=== PATIENT | male | born 1980 | race African-American/Black ===

== ENCOUNTER 2018-06-23 04:05 | Emergency (ER) | payer MEDICAID ==
[~2018-06-23] VITALS: Ht 190.5 cm; Wt 127.0 kg
--- NOTE | 2018-06-23 04:05 | NUR ---
TO ED 04 VIA [facility]
[2018-06-23 04:15] VITALS: BP 136/86
[2018-06-23 04:17] VITALS: BP 136/86
--- NOTE | 2018-06-23 04:20 | NUR ---
PT TO ED WITH C/O ALOC. PER MEDIC REPORT "PT FOUND SLEEPING NEAR BANK WITH NO PANTS ON." PT IS ALERT TO NAME AND BIRTHDAY. PT DENIES ALCOHOL AND DRUG USE. PT DENIES ANY PAIN AT THIS TIME. PT PLACED INTO BED, PENDING MD GAYTAN.
[2018-06-23 04:43] LABS: BASOPHILS % (AUTO) 0.5 % (0.0-2.0); EOSINOPHILS # (AUTO) 0.1 K/uL (0-0.4); EOSINOPHILS % (AUTO) 0.6 % (0.0-4.0); HEMATOCRIT 37.6 % (36-52); HEMOGLOBIN 12.7 g/dL (12.0-18.0); LYMPHOCYTES # (AUTO) 1.3 K/uL (2.0-11.5); LYMPHOCYTES % (AUTO) 12.2 % (20.5-51.1); MEAN CORPUSCULAR HEMOGLOBIN 32 pg (27-31); MEAN CORPUSCULAR HGB CONC 34 g/dL (33-37); MONOCYTES % (AUTO) 9.6 % (1.7-9.3); NEUTROPHILS % (AUTO) 77.1 % (42.2-75.2); PLATELET COUNT (AUTO) 316 K/uL (140-450); RED CELL DISTRIBUTION WIDTH 13.4 % (11.6-13.7); WHITE BLOOD COUNT (AUTO) 10.4 K/uL (4.8-10.8)
[2018-06-23 04:50] LABS: APPEARANCE,URINE CLEAR (CLEAR); BILIRUBIN,URINE NEGATIVE (NEGATIVE); BLOOD, URINE NEGATIVE (NEGATIVE); COLOR,URINE YELLOW (YELLOW); LEUKOCYTE ESTERASE ,URINE NEGATIVE (NEGATIVE); NITRITE, URINE NEGATIVE (NEGATIVE); UGLUCOSE NEGATIVE (NEGATIVE)
[2018-06-23 04:54] LABS: ANION GAP 11.9 (8-16); CARBON DIOXIDE 26.9 mmol/L (21-32); CHLORIDE 102 mmol/L (98-107); CREATININE 0.9 mg/dL (0.7-1.3); GFR ARICAN-AMERICAN 122 mL/min (>90); GLUCOSE 97 mg/dL (74-106); POTASSIUM 3.8 mmol/L (3.5-5.1); SODIUM SERUM 137 mmol/L (136-145); UREA NITROGEN, BLOOD 11 mg/dL (7-18)
[2018-06-23 04:58] LABS: BARBITURATE, URINE NEG. ng/ml (NEG <=200); BENZODIAZEPINE, URINE NEG. ng/mL (NEG <=200); CANNABINOID, URINE POS. ng/mL (NEG <=50); COCAINE, URINE NEG. ng/mL (NEG <=300); OPIATE, URINE NEG. ng/mL (NEG <=2000); PHENCYCLIDINE SCREEN,URINE NEG. ng/mL (NEG <=25)
[2018-06-23 04:59] LABS: ALBUMIN 2.9 g/dL (3.4-5.0); ASPARTATE AMINOTRANSFERASE 55 U/L (15-37); TOTAL BILIRUBIN 0.2 mg/dL (0.0-1.0)
[2018-06-23] MEDS ORDERED: NACL 0.9% 2,000 ML IV ONE (06:05)
[2018-06-23] MEDS ORDERED: PIPERACILLIN/TAZOBACTAM 3.375 GM in DEXTROSE 5% 50 ML IV ONE (06:05)
--- NOTE | 2018-06-23 06:05 | NUR ---
PT RETURN FROM CT
[2018-06-23] MEDS ORDERED: PIPERACILLIN/TAZOBACTAM 3.375 GM VIAL IV ONE (06:19)
--- NOTE | 2018-06-23 06:25 | NUR ---
PT TRYING TO GET OUT OF BED. PT REMOVED GOWN, PT STANDING IN HALLWAY NAKED. PT INSTRUCTED TO RETURN INTO ROOM. PATIENT TUGGING AT IV, STATES HE WANTS TO "BOUNCE." SECURITY CALLED TO BEDSIDE.
[2018-06-23] MEDS ORDERED: ACETAMINOPHEN 325 MG TAB PO PRN (06:30)
[2018-06-23] MEDS ORDERED: ONDANSETRON 4 MG/2 ML VIAL IVP PRN (06:30)
--- NOTE | 2018-06-23 06:35 | NUR ---
PT DRESSED HIMSELF IN PERSONAL CLOTHING. PT DOES NOT WANT TO STAY IN HOSPITAL. PT WAKLED OUT OF EMERGENCY ROOM, ELOPED FROM FACILITY. DR. HAZEL AWARE. SECURITY ESCORTED PT OUT.
--- NOTE | 2018-06-23 06:45 | NUR ---
PATIENT ELOPED FROM FACILITY. DISCHARGE INSTRUCTIONS NOT GIVEN TO PATIENT. DR. HAZEL NOTIFIED.
[2018-06-23] MEDS ORDERED: DOCUSATE SODIUM 100 MG GELCAP PO SCH (09:00)
[2018-06-24] MEDS ORDERED: RIS1 PO (20:27)
[2018-06-24] MEDS ORDERED: AZIT250T11 PO (20:27)
== END 2018-06-23 06:35 | disposition left against medical advice (07) ==
LOC: MED 04:05
DX: R41.82 Altered mental status, unspecified (principal); J18.9 Pneumonia, unspecified organism
CPT/HCPCS: 36415; 70450; 71045; 80053; 80305; 81003; 85025; 93005; 99284; G0482; J2543; J7030; Q0092

== ENCOUNTER 2018-06-23 09:54 | Inpatient (IN) | payer MEDICAID ==
[~2018-06-23] VITALS: Ht 188 cm; Wt 127.0 kg
--- NOTE | 2018-06-23 09:55 | NUR ---
PATIENT BIB EMS TO BED 9 AT THIS TIME.
[2018-06-23 09:59] VITALS: BP 130/79
[2018-06-23] MEDS ORDERED: NACL 0.9% 1,000 ML IV ONE (10:14)
--- NOTE | 2018-06-23 10:15 | NUR ---
PT TRIAGED AT BEDSIDE. SECURITY NOTIFIED THAT PT IS BACK. SECURITY AT BEDSIDE.
[2018-06-23] MEDS ORDERED: NACL 0.9% 2,000 ML IV SCH (10:16)
[2018-06-23] MEDS ORDERED: PIPERACILLIN/TAZOBACTAM 3.375 GM in DEXT 5% MINI-BAG PLUS 50 ML IV ONE (10:20)
--- NOTE | 2018-06-23 10:26 | NUR ---
PT REFUSED EKG AT THIS TIME, WILL ATTEMPT LATER. MD AND RN NOTIFIED
--- NOTE | 2018-06-23 10:26 | NUR ---
ABG CANCELLED PER DR HAZEL PT COMBATIVE
--- NOTE | 2018-06-23 10:33 | NUR ---
LAB AT BEDSIDE TO DRAW BLOOD
[2018-06-23] MEDS ORDERED: HYDROcodone/APAP 7.5/325 MG 1 TAB PO PRN (10:35)
[2018-06-23] MEDS ORDERED: ONDANSETRON 4 MG/2 ML VIAL IVP PRN (10:35)
[2018-06-23] MEDS ORDERED: ACETAMINOPHEN 325 MG TAB PO PRN (10:35)
[2018-06-23 10:44] LABS: BASOPHILS % (AUTO) 0.5 % (0.0-2.0); EOSINOPHILS # (AUTO) 0.1 K/uL (0-0.4); EOSINOPHILS % (AUTO) 0.8 % (0.0-4.0); HEMATOCRIT 38.1 % (36-52); HEMOGLOBIN 12.7 g/dL (12.0-18.0); LYMPHOCYTES # (AUTO) 1.3 K/uL (2.0-11.5); LYMPHOCYTES % (AUTO) 13.8 % (20.5-51.1); MEAN CORPUSCULAR HEMOGLOBIN 32 pg (27-31); MEAN CORPUSCULAR HGB CONC 33 g/dL (33-37); MEAN CORPUSCULAR VOLUME 94.3 fL (80-94); MONOCYTES # (AUTO) 0.9 K/uL (0.8-1.0); MONOCYTES % (AUTO) 9.5 % (1.7-9.3); NEUTROPHILS # (AUTO) 7.1 K/uL (1.8-7.7); NEUTROPHILS % (AUTO) 75.4 % (42.2-75.2); PLATELET COUNT (AUTO) 334 K/uL (140-450); RED BLOOD CELL COUNT(AUTO) 4.04 MIL/uL (4.20-6.10); RED CELL DISTRIBUTION WIDTH 13.5 % (11.6-13.7); WHITE BLOOD COUNT (AUTO) 9.4 K/uL (4.8-10.8)
--- NOTE | 2018-06-23 10:46 | NUR ---
PCXR AT BEDSIDE. SECURITY REMAINS AT BEDSIDE.
[2018-06-23 10:51] LABS: CARBON DIOXIDE 29.6 mmol/L (21-32); CREATININE 0.8 mg/dL (0.7-1.3); POTASSIUM 3.6 mmol/L (3.5-5.1); PROTHROMBIN TIME 9.3 secs (10.8-13.4)
[2018-06-23 10:57] LABS: ALBUMIN 2.9 g/dL (3.4-5.0); TOTAL BILIRUBIN 0.3 mg/dL (0.0-1.0)
[2018-06-23 10:58] LABS: ACETONE, SERUM NEGATIVE (NEGATIVE)
[2018-06-23 11:05] LABS: MAGNESIUM 2.1 mg/dL (1.8-2.4); URIC ACID 3.6 mg/dL (2.6-7.2)
--- NOTE | 2018-06-23 11:06 | NUR ---
PT AMBULATED TO RESTROOM AND BACK TO [facility] WITH STEADY GAIT. LOAN APPROVER ATTEMPTING TO COMPLETE EKG. SECURITY AT BEDSIDE.
[2018-06-23 11:08] LABS: CHOL/HDL RATIO 2.4 (1-4.5); FREE T4 (FREE THYROXINE) 1.23 ng/dL (0.76-1.46); PHOSPHORUS 3.3 mg/dL (2.5-4.9); THYROID STIMULATING HORMONE 1.09 uIU/mL (0.34-3.74)
--- NOTE | 2018-06-23 11:19 | NUR ---
DR. SIERRA AT BEDSIDE TO EVALUATE PT. EKG COMPLETED.
[2018-06-23 11:29] LABS: APPEARANCE,URINE SL CLOUDY (CLEAR); BILIRUBIN,URINE NEGATIVE (NEGATIVE); BLOOD, URINE 1+ (NEGATIVE); COLOR,URINE YELLOW (YELLOW); LEUKOCYTE ESTERASE ,URINE 1+ (NEGATIVE); NITRITE, URINE NEGATIVE (NEGATIVE); PH,URINE 6.5 (5.0-9.0); UGLUCOSE NEGATIVE (NEGATIVE)
[2018-06-23] MEDS: NACL 0.9% 1,000 ML IV SCH ×2 (11:32→20:34)
[2018-06-23] MEDS ORDERED: PIPERACILLIN/TAZOBACTAM 3.375 GM VIAL IV ONE (11:34)
--- NOTE | 2018-06-23 11:38 | NUR ---
SECURITY LEFT PT'S BEDSIDE. PT SLEEPING SOUNDLY, EQUAL CHEST RISE AND FALL.
[2018-06-23 11:49] LABS: WBC,URINE 0-5 /HPF (0-5)
[2018-06-23 11:50] LABS: URINE AMORPHOUS URATE 1+ /HPF (None Seen)
[2018-06-23 11:55] LABS: BARBITURATE, URINE NEG. ng/ml (NEG <=200); BENZODIAZEPINE, URINE NEG. ng/mL (NEG <=200); CANNABINOID, URINE POS. ng/mL (NEG <=50); COCAINE, URINE NEG. ng/mL (NEG <=300); OPIATE, URINE NEG. ng/mL (NEG <=2000); PHENCYCLIDINE SCREEN,URINE NEG. ng/mL (NEG <=25)
[2018-06-23 12:15] VITALS: BP 142/93
--- NOTE | 2018-06-23 12:15 | NUR ---
Pt admitted to room 110A from ER via rericson. Pt transferred from gurney to bed with 4-person total assist. Pt drowsy, non-verbal, able to follow one-step commands. Fall precautions initiated, call light within reach, bed alarm on. Left AC IV intact with ongoing NS @ 100ml/hr with Zosyn IVPB @ 100ml/hr. Will continue to monitor. Addendum: 06/23/18 at 1549 by Nika Lopez RN Addendum: Report received from ER nurse Kamille.
--- NOTE | 2018-06-23 12:19 | NUR ---
Patient will be admitted to care of DR. HOPPER. Admited to TELE. Will go to room 110A. Belongings list completed. Report to KORINA CARPENTER.
[2018-06-23] MEDS ORDERED: cefTRIAXone 2,000 MG in DEXTROSE 5% 100 ML IV SCH (13:00)
[2018-06-23] MEDS ORDERED: AZITHROMYCIN 500 MG in DEXTROSE 5% 250 ML IV SCH (13:00)
--- NOTE | 2018-06-23 14:00 | NUR ---
Pt awake, verbally responsive, states he is homeless with no other medical hx, no meds. Pt also states he donated his intestines to his cousin. Pt noted to be pulling on IV lines. Explained safety & indications for IV meds & hydration. Pt redirected but states he wants to go out to smoke. Explained non-smoking policy. Pt frequently getting up & stating he will walk out with his IVs. Security at bedside monitoring pt.
--- NOTE | 2018-06-23 14:30 | NUR ---
Pt taking out home health outreach coordinator. Explained benefits of continuous cardiac monitoring, pt cont to refuse. Dr. Ramesh notified.
[2018-06-23] MEDS: LORazepam 2 MG/ML VIAL IM/IVP PRN (14:36)
[2018-06-23] MEDS ORDERED: HALOPERIDOL IM 5 MG/ML VIAL IM SCH (14:58)
[2018-06-23] MEDS ORDERED: diphenhydrAMINE 50 MG/ML VIAL IVP SCH (14:58)
--- NOTE | 2018-06-23 15:10 | NUR ---
Haldol & Benadryl administered per physician order d/t pt being aggressive & uncooperative. Security personnel at bedside for monitoring. Cont fall precautions. Constant visual checks done to ensure safety. Bed alarm on.
--- NOTE | 2018-06-23 15:40 | NUR ---
Dr Oh came in to see pt. Pt sitting on bed, drowsy & stumbling forward. Pt assisted to bed, bed alarm on, frequent checks done. Left AC IV intact with ongoing Zithromax infusion.
[2018-06-23 16:00] VITALS: BP 142/70
--- NOTE | 2018-06-23 16:30 | NUR ---
Pt getting up wanting to go out to smoke. Explained non-smoking policy. Pt assisted back to bed. Pt states he wants to shower. IVF held. IV site wrapped with clear dressing. Pt drowsy. Instructed pt to lie back in bed & will have shower when more awake. Pt laid down in bed & went to sleep. Respirations even & nonlabored. Bed alarm on. Will cont to monitor.
--- NOTE | 2018-06-23 19:14 | NUR ---
Bedside report given to pm nurse Noe. Pt asleep in bed, cont to hold IVF d/t pt poor safe maneuvering of IV pole. Bed alarm on. Call light within reach.
--- NOTE | 2018-06-23 19:15 | NUR ---
REPORT RECEIVED FROM AM NURSE AT BEDSIDE. PT IN STABLE CONDITION. AAOX3. INTRODUCED SELF TO PT. BOARD UPDATED. NO COMPLAINTS OF PAIN. NO SOB. AFEBRILE. IV SITE L UA 20G RUNNING NS@100ML/HR PATENT AND INTACT. SKIN WARM, DRY, AND INTACT WITH SCABS TO THE RIGHT UPPER THIGH. PT IS HOMELESS. BED LOCKED IN LOW POSITION. CALL RUBIO WITHIN REACH. SAFETY PRECAUTIONS IN PLACE. ALL NEEDS MET AT THIS TIME.
[2018-06-23] MEDS ORDERED: NICOTINE TRANSD SYS 21 MG/24 HR PATCH TD SCH (20:00)
[2018-06-23] MEDS: DOCUSATE SODIUM 100 MG GELCAP PO SCH (20:09)
[2018-06-23] MEDS: risperiDONE 1 MG TAB PO SCH (20:09)
--- NOTE | 2018-06-23 20:09 | NUR ---
RISPERDAL GIVEN PO. HABITROL APPLIED TO LEFT UPPER ARM. PT TOLERATED WELL. PT REFUSED DOCUSATE.
[2018-06-23] MEDS ORDERED: QUEtiapine FUMARATE 25 MG TAB PO SCH (21:00)
--- NOTE | 2018-06-23 22:45 | NUR ---
PT UP AND AWAKE SAYING THAT HE WANTS THE IV OUT AND ATTEMPTS TO PULL IV OUT. MD NOTIFIED. AWAITING NEW ORDERS.
[2018-06-24] VITALS: BP 128/88
--- NOTE | 2018-06-24 | NUR ---
IV REMOVED. CANNULA INTACT.
--- NOTE | 2018-06-24 00:15 | NUR ---
PT SLEEPING IN THE BED. NO S/S OF SOB OR ANY DISTRESS NOTED. BREATHING EVENLY AND UNLABORED. SKIN WARM AND DRY TO TOUCH. CALL LIGHT WITHIN REACH. WILL CONTINUE TO MONITOR Addendum: 06/25/18 at 0620 by Dg Simmons RN WRONG TIME
[2018-06-24] MEDS: LORazepam 2 MG/ML VIAL IM/IVP PRN ×2 (01:43→06:16)
--- NOTE | 2018-06-24 01:43 | NUR ---
ATIVAN GIVEN IM. PT TOLERATED WELL.
--- NOTE | 2018-06-24 02:50 | NUR ---
PT SLEEPING COMFORTABLY IN BED. NO S/S OF DISTRESS NOTED. WILL CONTINUE TO MONITOR.
--- NOTE | 2018-06-24 04:50 | NUR ---
PT IN BED SLEEPING. NO S/S OF DISTRESS NOTED. WILL CONTINUE TO MONITOR.
--- NOTE | 2018-06-24 06:16 | NUR ---
ATIVAN GIVEN IM. PT TOLERATED WELL.
--- NOTE | 2018-06-24 07:15 | NUR ---
REPORT GIVEN TO AM NURSE AT BEDSIDE. PT IN STABLE CONDITION.
--- NOTE | 2018-06-24 07:16 | NUR ---
GOT BEDSIDE REPORT FROM KORINA HERNANDEZ. PATIENT ON MED SURGE AND STANDARD PRECAUTIONS IN PLACE. PATIENT ON ROOM AIR, NO DISTRESS NOTED. R KNEE SCAB AND R FOOT BLISTER OPEN TO AIR. NO IV PRESENT, PATIENT REFUSED. SITTER AT BEDSIDE. PATIENT AMBULATORY AND CONTINENT. BED IN LOW POSITION, CALL LIGHT WITHIN REACH, SIDE RAILS X2 UP
[2018-06-24 08:00] VITALS: BP 125/73
--- NOTE | 2018-06-24 08:14 | NUR ---
PATIENT HAS BEEN SCREENED AND CATEGORIZED MODERATE NUTRITION RISK. PATIENT WILL BE SEEN WITHIN 3-5 DAYS OF ADMISSION. 06/25/18[address]EL[address]
[2018-06-24 08:39] LABS: MAGNESIUM 2.5 mg/dL (1.8-2.4); PHOSPHORUS 4.5 mg/dL (2.5-4.9)
[2018-06-24 08:40] LABS: BASOPHILS % (AUTO) 0.3 % (0.0-2.0); EOSINOPHILS # (AUTO) 0.1 K/uL (0-0.4); EOSINOPHILS % (AUTO) 1.3 % (0.0-4.0); HEMATOCRIT 39.7 % (36-52); HEMOGLOBIN 13.4 g/dL (12.0-18.0); LYMPHOCYTES # (AUTO) 1.8 K/uL (2.0-11.5); LYMPHOCYTES % (AUTO) 32.1 % (20.5-51.1); MEAN CORPUSCULAR HEMOGLOBIN 32 pg (27-31); MEAN CORPUSCULAR HGB CONC 34 g/dL (33-37); MEAN CORPUSCULAR VOLUME 95.8 fL (80-94); MONOCYTES # (AUTO) 0.8 K/uL (0.8-1.0); MONOCYTES % (AUTO) 13.1 % (1.7-9.3); NEUTROPHILS % (AUTO) 53.2 % (42.2-75.2); PLATELET COUNT (AUTO) 330 K/uL (140-450); RED BLOOD CELL COUNT(AUTO) 4.15 MIL/uL (4.20-6.10); RED CELL DISTRIBUTION WIDTH 13.5 % (11.6-13.7); WHITE BLOOD COUNT (AUTO) 5.7 K/uL (4.8-10.8)
[2018-06-24] MEDS: NICOTINE TRANSD SYS 21 MG/24 HR PATCH TD SCH (08:44)
[2018-06-24] MEDS: DOCUSATE SODIUM 100 MG GELCAP PO SCH ×2 (08:45→20:43)
[2018-06-24] MEDS: LACTOBACILLUS RHAMNOSUS GG 1 EACH CAP PO SCH (08:45)
[2018-06-24] MEDS: MULTIVITAMIN 1 TAB PO SCH (08:45)
[2018-06-24] MEDS: risperiDONE 1 MG TAB PO SCH ×2 (08:45→20:43)
--- NOTE | 2018-06-24 08:45 | NUR ---
ADMINISTERED SCHEDULED MEDS. PATIENT TOLERATED WELL
[2018-06-24 08:50] LABS: ANION GAP 12.1 (8-16); CARBON DIOXIDE 27.3 mmol/L (21-32); CREATININE 0.7 mg/dL (0.7-1.3); POTASSIUM 4.4 mmol/L (3.5-5.1)
[2018-06-24] MEDS ORDERED: TOLNAFTATE 1% TP SCH ×2 (09:00→09:12)
[2018-06-24 09:09] LABS: CKMB RELATIVE INDEX 1.4 (0.0-2.5); CREATINE KINASE MB 8.1 ng/mL (0-3.6)
--- NOTE | 2018-06-24 10:57 | NUR ---
NEW BANDAGE APPLIED ON R THIGH SCABS, INSTRUCTED PATIENT NOT TO REMOVE
--- NOTE | 2018-06-24 12:17 | NUR ---
PATIENT STANDING IN ROOM, SPEAKING TO SITTER. PATIENT STATED HE WANTS TO GO OUTSIDE AND WALK AROUND UNIT
[2018-06-24] MEDS ORDERED: AZITHROMYCIN 250 MG TAB PO SCH (14:00)
--- NOTE | 2018-06-24 14:25 | NUR ---
ADMINISTERED SCHEDULED MEDS. PATIENT TOLERATED WELL
[2018-06-24 16:00] VITALS: BP 148/86
--- NOTE | 2018-06-24 16:49 | NUR ---
ULTRASOUND COMPLETE, PATIENT GIVEN SNACK
--- NOTE | 2018-06-24 19:05 | NUR ---
GAVE REPORT TO KORINA HERNANDEZ. PATIENT ENDORSED IN STABLE CONDITION
--- NOTE | 2018-06-24 19:06 | NUR ---
RECEIVED PATIENT FROM DAY SHIFT NURSE AT BED SIDE. PT STABLE CONDITION. AAOX4, NO SOB, NO FEVER, NO PAIN NOTED. NO IV SITE NOTED. PT SKIN DRY AND INTACT. R FOOT BLISTER AND R KNEE ABRIN AND R LEG SCABS NOTED. WILL CONTINUE TO MONITOR.
[2018-06-24] MEDS ORDERED: AZIT250T11 PO (20:27)
[2018-06-24] MEDS ORDERED: RIS1 PO (20:27)
[2018-06-24] MEDS ORDERED: traZODone 50 MG TAB PO SCH (20:30)
[2018-06-24] MEDS: LORazepam 1 MG TAB PO PRN (20:54)
--- NOTE | 2018-06-24 20:54 | NUR ---
PATIENT WALKING AROUND IN THE ROOM. ASSISTED PATIENT TO SEAT DOWN ON BED. MEDICATION GIVEN ORDERED. PT TOLERATED WELL. WILL CONTINUE TO MONITOR.
--- NOTE | 2018-06-24 22:35 | NUR ---
PATIENT SLEEPING COMFORTABLY. NO S/S OF SOB OR ANY DISTRESS NOTED. WILL CONTINUE TO MONITOR.
[2018-06-25] VITALS: BP 154/77
--- NOTE | 2018-06-25 00:15 | NUR ---
PT SLEEPING IN THE BED. NO S/S OF SOB OR ANY DISTRESS NOTED. BREATHING EVENLY AND UNLABORED. SKIN WARM AND DRY TO TOUCH. CALL LIGHT WITHIN REACH. WILL CONTINUE TO MONITOR
[2018-06-25] MEDS: LORazepam 1 MG TAB PO PRN (02:36)
--- NOTE | 2018-06-25 02:36 | NUR ---
GIVEN ATIVAN PO. PATIENT TOLERATED WELL. WILL CONTINUE TO MONITOR
--- NOTE | 2018-06-25 05:35 | NUR ---
PT AWAKE AND KEEP TAKING HOSPITAL GOWN OFF. WALKING AROUND ROOM AND TRYING TO GET OUT OF ROOM WITHOUT GOWN. ASSISTED PT TO GO BACK TO BED. WILL CONTINUE TO MONITOR.
[2018-06-25 06:21] LABS: HEPATITIS A ANTIBODY IGM Negative (Negative); HEPATITIS B CORE AB TOTAL Negative (Negative); HEPATITIS B SURFACE ANTIBODY Non Reactive (.); HEPATITIS B SURFACE ANTIGEN Negative (Negative)
[2018-06-25 06:36] LABS: ANION GAP 8.7 (8-16); CARBON DIOXIDE 30.5 mmol/L (21-32); CREATININE 0.8 mg/dL (0.7-1.3); POTASSIUM 4.2 mmol/L (3.5-5.1)
[2018-06-25 06:47] LABS: MAGNESIUM 2.4 mg/dL (1.8-2.4); PHOSPHORUS 4.7 mg/dL (2.5-4.9)
[2018-06-25] MEDS ORDERED: AZIT250T3 PO (07:25)
--- NOTE | 2018-06-25 07:30 | NUR ---
REPORT GIVEN TO AM NURSE AT BEDSIDE. PT IN STABLE CONDITION.
--- NOTE | 2018-06-25 07:31 | NUR ---
BEDSIDE REPORT FROM KORINA HERNANDEZ. PATIENT ON MED SURGE AND STANDARD PRECAUTIONS IN PLACE. PATIENT AAOX2 AND ON ROOM AIR, WITH NO DISTRESS NOTED. PATIENT AMBULATORY AND CONTINENT. NO IV IN PLACE. SCABS ON R LEG AND BLISTER ON R FOOT. SITTER BY DOOR. BED IN LOW POSITION, CALL LIGHT WITHIN REACH, SIDE RAILS X2 UP
[2018-06-25 08:00] VITALS: BP 152/94
[2018-06-25 08:29] LABS: BASOPHILS % (AUTO) 0.6 % (0.0-2.0); EOSINOPHILS # (AUTO) 0.1 K/uL (0-0.4); EOSINOPHILS % (AUTO) 0.9 % (0.0-4.0); HEMATOCRIT 39.4 % (36-52); HEMOGLOBIN 13.4 g/dL (12.0-18.0); LYMPHOCYTES # (AUTO) 2.1 K/uL (2.0-11.5); LYMPHOCYTES % (AUTO) 30.5 % (20.5-51.1); MEAN CORPUSCULAR HEMOGLOBIN 33 pg (27-31); MEAN CORPUSCULAR HGB CONC 34 g/dL (33-37); MEAN CORPUSCULAR VOLUME 96.3 fL (80-94); MONOCYTES # (AUTO) 0.8 K/uL (0.8-1.0); MONOCYTES % (AUTO) 11.4 % (1.7-9.3); NEUTROPHILS # (AUTO) 3.9 K/uL (1.8-7.7); NEUTROPHILS % (AUTO) 56.6 % (42.2-75.2); PLATELET COUNT (AUTO) 386 K/uL (140-450); RED BLOOD CELL COUNT(AUTO) 4.09 MIL/uL (4.20-6.10); RED CELL DISTRIBUTION WIDTH 13.5 % (11.6-13.7); WHITE BLOOD COUNT (AUTO) 6.8 K/uL (4.8-10.8)
[2018-06-25] MEDS: NICOTINE TRANSD SYS 21 MG/24 HR PATCH TD SCH (09:00)
--- NOTE | 2018-06-25 10:00 | NUR ---
PATIENT STANDING IN ROOM TALKING TO SITTER, ON ROOM AIR, NO COMPLAINTS AT THIS TIME
--- NOTE | 2018-06-25 12:18 | NUR ---
HELD NICOTINE PATCH BECAUSE YESTERDAY PATIENT STARTED CHEWING IT. DR SIERRA AWARE
--- NOTE | 2018-06-25 12:20 | NUR ---
ADMINISTERED MEDS. PATIENT TOLERATED WELL
[2018-06-25] MEDS: DOCUSATE SODIUM 100 MG GELCAP PO SCH (12:22)
[2018-06-25] MEDS: MULTIVITAMIN 1 TAB PO SCH (12:22)
[2018-06-25] MEDS: LACTOBACILLUS RHAMNOSUS GG 1 EACH CAP PO SCH (12:22)
[2018-06-25] MEDS: risperiDONE 1 MG TAB PO SCH (12:22)
--- NOTE | 2018-06-25 13:50 | NUR ---
DISCHARGE INSTRUCTIONS PROVIDED TO PATIENT. PATIENT REFUSED FLU AND PNA VACCINES. PICTURES TAKEN OF SCABS ON R LEG, ADMITTANCE ATTENDANT. REMOVED WRIST BAND. PATIENT PROVIDED WITH PRESCRIPTION IN FOLDER. ALL BELONGINGS SENT HOME WITH PATIENT. INSTRUCTED PATIENT AND PATIENT'S GRANDMA TO FOLLOW UP WITH [facility] WITHIN 1 WEEK. PATIENT PICKED UP BY GRANDMA.
== END 2018-06-25 13:50 | disposition home or self-care (01) | DRG 139 ==
LOC: MED 09:54 → MTU 10:34
PROVIDERS: ADMIT General Practice; ATTEND General Practice
DX: J18.9 Pneumonia, unspecified organism (principal); G93.41 Metabolic encephalopathy; E43 Unspecified severe protein-calorie malnutrition; M62.82 Rhabdomyolysis; E88.09 Other disorders of plasma-protein metabolism, not elsewhere classified; F20.9 Schizophrenia, unspecified; K76.0 Fatty (change of) liver, not elsewhere classified; B35.6 Tinea cruris; F12.10 Cannabis abuse, uncomplicated; N39.0 Urinary tract infection, site not specified; E66.9 Obesity, unspecified; S90.821A Blister (nonthermal), right foot, initial encounter; F29 Unspecified psychosis not due to a substance or known physiological condition; R73.9 Hyperglycemia, unspecified; F19.90 Other psychoactive substance use, unspecified, uncomplicated; X58.XXXA Exposure to other specified factors, initial encounter; Z68.35 Body mass index [BMI] 35.0-35.9, adult; Z59.0 Homelessness; Y93.89 Activity, other specified; Y92.89 Other specified places as the place of occurrence of the external cause; Y99.8 Other external cause status; Z91.19 Patient's noncompliance with other medical treatment and regimen
CPT/HCPCS: 36415; 71045; 76705; 80048; 80053; 80305; 81001; 82009; 82140; 82150; 82550; 82553; 83036; 83605; 83690; 83735; 83880; 84100; 84439; 84443; 84484; 84550; 85025; 85610; 86704; 86706; 86708; 86709; 86803; 87040; 87081; 87086; 87340; 93005; 99285; G0482; J0456; J0696; J1200; J1630; J2060; J2543; J7060; Q0092